=== PATIENT | female | born 1975 | race Two or more races ===

== ENCOUNTER 2024-02-02 07:05 | Day surgery (SDC) | payer MEDICAID, SELFPAY ==
[2024-02-02] VITALS (9 sets, daily range): BP systolic 95–141; BP diastolic 65–94; PULSE 75–98; RESP 10–20; TEMP 36.2–37.1; O2SAT 95–100; BMI 33.4
[2024-02-02] MEDS: DiphenhydrAMINE INJ 50 MG/ML VIAL 25 MG IV (07:59)
[2024-02-02] MEDS: fentaNYL CIT INJ 50 mCg/ML AMP 2ML (ASD USE ONLY) IV (08:05)
[2024-02-02] MEDS: MIDAZOLAM INJ 1 MG/ML VIAL 2 ML (ASD USE ONLY) 2 MG IV (08:05)
== END 2024-02-02 09:20 | disposition home or self-care (01) ==
PROVIDERS: PCP Student in an Organized Health Care Education/Training Program; Referring Provider Surgery; Visit Provider Surgery
PROC: 0DBE8ZX Excision of Large Intestine, Via Natural or Artificial Opening Endoscopic, Diagnostic (ICD-10-PCS; CPT 45380; principal; 2024-02-02 09:15)
DX: D12.2 Benign neoplasm of ascending colon (principal)
CPT/HCPCS: 45380; J1200; J2250; J3010

== ENCOUNTER 2024-02-15 15:30 | Outpatient (AMB) | payer MEDICAID, SELFPAY ==
--- NOTE | 2024-02-15 15:39 | GSCOFFNT_ITS ---
Vital Signs - [facility] 02/15/24 15:40 Height 1.55 m Height Method Stated Weight 80.796 kg Weight Measurement Method Standing Scale BMI 33.6 BP 124/80 Blood Pressure Source Automatic Cuff Blood Pressure Location Right Upper Arm Position Sitting Respiration 16 Pulse 93 Pulse Source Monitor Temp 97.5 F Temp Source Temporal Artery Scan Pulse Oximetry (%) 96 Oxygen Delivery Method Room Air Med/Allergies Allergies & Medications Allergies No Known Allergies Allergy (Verified 02/15/24 15:40) Medication Reconciliation baclofen 10 mg tablet 10 mg PO QHSPRN PRN Pain 02/02/24 [History Confirmed 02/15/24] ibuprofen 600 mg tablet 600 mg PO TID 02/02/24 [History Confirmed 02/15/24] MA Intake Visit Data Collection New Patient or Established: Established Patient (seen at [facility] within 3 years) Seen by Clinical Staff ONLY (RN/MA): No Reason for Visit:: COLONOSCOPY RESULTS Pain Present Currently: No Spectral Scientist Required: Yes PCP or OBGYN visit in last 3 months: Yes Do You Feel Safe at Home: Yes Smoking Status Smoking Status: Never smoker Immunization / Flu Flu Vaccine in the Last 12 Months: Yes Flu Vaccine Exclusion Criteria: Already Received Past Medical History Past Medical History NEUROLOGIC: Negative Neurological Disorders or Seizures CARDIAC: Positive Cardiac Disorders (palpitation r/t stress); Negative Congestive Heart Failure RESPIRATORY: Negative Chronic Obstructive Pulmonary Disease (COPD) GASTROINTESTINAL: Positive Gastrointestinal Disorders (constipation) GENITOURINARY: Negative Genitourinary Disorders or Renal Disease ENDOCRINE: Negative Endocrine Disorders, Diabetes Mellitus Type 1 or Diabetes Mellitus Type 2 HEMATOLOGIC: Negative Blood Disorders PSYCHO/SOCIAL: Positive Anxiety OTHER HISTORY: Positive Blood Transfusions, Chicken Pox, Measles and Mumps; Negative Hospitalization, Down Syndrome, Developmental Delay, Falls, Blood Transfusion Reaction or Anesthesia Reactions Surgical History SURGICAL: Positive Hysterectomy Social History SMOKING STATUS: Smoking status: Never smoker ALCOHOL: Alcohol Intake: Never HOUSING: Housing: House HPI HPI Narrative 47F s/p diagnostic colonoscopy 02/01 here for planned follow up. Pt reports feeling well overall, no complaints after colonoscopy ROS Review of Systems Systems Reviewed: All systems reviewed, normal except as documented Objective/Exam General General Appearance: alert, cooperative and well groomed Resp Respiratory exam: Absent respiratory distress Results Colonoscopy report: good prep, one small polyp in ascending colon Pathology: tubular adenoma Assessment & Plan Diagnosis / Problem List (1) Encounter to discuss colonoscopy results: Status: Acute Assessment & Plan: 47F s/p diagnostic colonoscopy 02/01 with findings of 1 small tubular adenoma, due for next colonoscopy in 7 years Office Procedures GNS Level of Care Nursing/Assessment Patient Status: Established Patient Nursing Assessment/Reassesment: Medication Reconciliation, Update PMH in EMR and Vital Signs Coordination of Care: Complex Care and Chronic Disease 1-5, Education Complex Pt/Fam, 1 Ins Authorization and Staff clarify orders Special Needs: Language special needs Established Patient Charge Established Patient Point Assignment: 100 Established Patient Point Charge: EP Level 3 (80-115) Patient Portal Questionaires Social History Living Situation History Housing: House Tobacco History Smoking Status: Never smoker Alcohol History Alcohol Intake: Never Domestic Abuse History Do You Feel Safe at Home: Yes Review of Systems Report any current symptoms Only answer those that you have currently: Past Medical History Past Medical History Have you ever been diagnosed with any of the following: Neurological Problems Seizures: No Cardiology Problems Congestive Heart Failure: No Respiratory Problems Chronic Obstructive Pulmonary Disease (COPD): No Genital/Urinary Problems Renal Disease: No Endocrine Problems Diabetes Mellitus Type 1: No Diabetes Mellitus Type 2: No Psychologic Problems Anxiety: Yes Other Problems Hospitalization: No Down Syndrome: No Developmental Delay: No Falls: No Blood Transfusions: Yes Blood Transfusion Reaction: No Anesthesia Reactions: No Chicken Pox: Yes Measles: Yes Mumps: Yes Surgical History Hysterectomy: Yes
[2024-02-15 15:40] VITALS: BP 124/80; PULSE 93; RESP 16; TEMP 36.4; O2SAT 96; BMI 33.6
== END 2024-02-15 15:56 | disposition home or self-care (01) ==
LOC: HODSRG 15:30
PROVIDERS: Supervising Provider Surgery; Visit Provider Surgery
DX: Z71.2 Person consulting for explanation of examination or test findings (principal); D12.6 Benign neoplasm of colon, unspecified
CPT/HCPCS: 99213; G0463